=== PATIENT | female | born 1945 | race Caucasian/White ===

== ENCOUNTER 2017-05-26 15:38 | Emergency (ER) | payer MEDICARE ==
[~2017-05-26] VITALS: Ht 165.1 cm; Wt 62.6 kg
[~2017-05-26 15:38] MED LIST: ALEN70 PO; AMLO5 PO; B Complex1 EAC2; BUPR100 PO; CITA20 PO; CRANBERRY250 MG; GLUCOSAMIN-CHO1 EACH; LISI20 PO; PROBIOTIC1 EAC1; PSYL5.85P; VENL75ER; VITAMIN D-32000 UNIT; VITAMIN E100 UNI1
[2017-05-26 17:20] LABS: Calcium, Ionized (POC) 1.33 mmol/L (1.10-1.46); Chloride (POC) 102 mmol/L (98-108); Creatinine (POC) 0.8 mg/dL (0.6-1.0); Glucose (ISTAT POC) 96 mg/dL (70-99); Hemoglobin (POC) 13.3 g/dL (12.0-16.0); Potassium (POC) 3.6 mmol/L (3.5-5.5); Sodium (POC) 136 mmol/L (135-148); Total CO2 (POC) 24 mmol/L (21-32)
[2017-05-26 18:25] LABS: Calcium, Ionized (POC) 1.31 mmol/L (1.10-1.46); Chloride (POC) 102 mmol/L (98-108); Creatinine (POC) 0.9 mg/dL (0.6-1.0); Glucose (ISTAT POC) 93 mg/dL (70-99); Hemoglobin (POC) 13.6 g/dL (12.0-16.0); Potassium (POC) 3.6 mmol/L (3.5-5.5); Sodium (POC) 137 mmol/L (135-148); Total CO2 (POC) 24 mmol/L (21-32)
[2017-05-26] MEDS ORDERED: Percocet 5-3251 EACH PO (18:52)
== END 2017-05-26 19:15 | disposition home or self-care (01) ==
LOC: ER 15:38
PROVIDERS: Emergency Medicine
DX: T20.26XA Burn of second degree of forehead and cheek, initial encounter (principal); T20.20XA Burn of second degree of head, face, and neck, unspecified site, initial encounter; T31.0 Burns involving less than 10% of body surface; F17.200 Nicotine dependence, unspecified, uncomplicated; X12.XXXA Contact with other hot fluids, initial encounter
CPT/HCPCS: 16020; 80047; 85014; 96361; 96374; 96375; 99283; J2060; J2405; J3010; J7030

== ENCOUNTER 2018-08-04 14:46 | Day surgery (SDC) | payer MEDICARE ==
[~2018-08-04] VITALS: Ht 165.1 cm; Wt 60.8 kg
[~2018-08-04 14:46] MED LIST changes: +Percocet 5-3251 EACH PO
[2018-08-04] MEDS ORDERED: LO-DOSE ASPIRIN81 MG PO (15:26)
[2018-08-04] MEDS ORDERED: METHYLPHENIDATE10 M4 PO (15:27)
[2018-08-04] MEDS ORDERED: Sudogest30 MG PO (15:27)
== END 2018-08-04 16:07 | disposition home or self-care (01) ==
LOC: ORSCSDS 14:46
PROVIDERS: Anesthesiology
PROC: 3E0R33Z Introduction of Anti-inflammatory into Spinal Canal, Percutaneous Approach (ICD-10-PCS; principal; 2018-08-04 15:30)
DX: M51.16 Intervertebral disc disorders with radiculopathy, lumbar region (principal); I10 Essential (primary) hypertension; F17.210 Nicotine dependence, cigarettes, uncomplicated; Z79.899 Other long term (current) drug therapy
CPT/HCPCS: J1040

== ENCOUNTER 2018-08-26 10:19 | Day surgery (SDC) | payer MEDICARE ==
[~2018-08-26] VITALS: Ht 165.1 cm; Wt 62.2 kg
[~2018-08-26 10:19] MED LIST changes: +LO-DOSE ASPIRIN81 MG PO; +METHYLPHENIDATE10 M4 PO; +Sudogest30 MG PO
== END 2018-08-26 11:33 | disposition home or self-care (01) ==
LOC: ORSCSDS 10:19
PROVIDERS: Anesthesiology
PROC: 3E0R33Z Introduction of Anti-inflammatory into Spinal Canal, Percutaneous Approach (ICD-10-PCS; principal; 2018-08-26 11:30)
DX: M54.16 Radiculopathy, lumbar region (principal); F41.8 Other specified anxiety disorders; I10 Essential (primary) hypertension; F17.210 Nicotine dependence, cigarettes, uncomplicated; Z79.899 Other long term (current) drug therapy
CPT/HCPCS: J1040

== ENCOUNTER 2022-01-30 19:36 | Inpatient (IN) | payer MEDICARE ==
[~2022-01-30] VITALS: Ht 167.6 cm; Wt 61.2 kg
[2022-01-30 21:27] LABS: BASOPHILS ABSOLUTE AUTO 0.05 K/mm3 (0.00-0.23); BASOPHILS PERCENT AUTO 0 % (0-2); EOSINOPHILS ABSOLUTE AUTO 0.07 K/mm3 (0.00-0.68); EOSINOPHILS PERCENT AUTO 1 % (0-6); Hematocrit 35.3 % (33.0-51.0); Hemoglobin 12.1 g/dL (11.5-16.0); IMMATURE GRAN ABSOLUTE AUTO 0.07 K/mm3 (0.00-0.10); IMMATURE GRAN PERCENT AUTO 1 % (0-1); LYMPHOCYTES ABSOLUTE AUTO 1.39 K/mm3 (0.84-5.20); LYMPHOCYTES PERCENT AUTO 9 % (21-46); MONOCYTES ABSOLUTE AUTO 0.62 K/mm3 (0.16-1.47); MONOCYTES PERCENT AUTO 4 % (4-13); Mean Corpuscular HGB 31.2 pg (26.0-34.0); Mean Corpuscular HGB Conc 34.3 g/dL (31.5-36.5); Mean Corpuscular Volume 91 fL (80-100); Mean Platelet Volume 9.6 fL (9.1-12.4); NEUTROPHILS ABSOLUTE AUTO 12.58 K/mm3 (1.96-9.15); NEUTROPHILS PERCENT AUTO 85 % (41-73); Platelet Count 259 K/mm3 (150-400); RDW Standard Deviation 42.5 fL (35.1-46.3); Red Blood Cell Count 3.88 M/mm3 (3.80-5.20); White Blood Cell Count 14.78 K/mm3 (4.00-11.30)
[2022-01-30 21:51] LABS: Source, Urine Straight Cath
[2022-01-30 21:51] LABS: Albumin, Blood 3.6 g/dL (3.4-5.0); Albumin/Globulin Ratio 1.2 (0.8-1.8); Bilirubin, Total 0.3 mg/dL (0.1-1.0); Bun/Creatinine Ratio 17.4 (12.0-20.0); Calcium, Blood 9.5 mg/dL (8.5-10.1); Creatinine, Blood 0.92 mg/dL (0.40-1.00); Magnesium, Blood 2.1 mg/dL (1.6-2.4); Potassium, Blood 4.5 mmol/L (3.5-5.5); Thyroid Stimulating Hormone 2.56 uIU/mL (0.360-4.800); Total Protein, Blood 6.6 g/dL (6.4-8.2)
[2022-01-30 21:55] LABS: Bilirubin, Urine Neg (Neg); Blood, Urine Neg (Neg); Glucose Qualitative, Urine Neg (Neg); Ketones, Urine Neg (Neg); Leukocyte Esterase, Urine Neg (Neg); Nitrite, Urine Neg (Neg); Protein, Urine Neg (Neg); Specific Gravity, Urine 1.005 (1.003-1.022); Urobilinogen, Urine NORM (Normal)
[2022-01-30 21:57] LABS: Influenza A, PCR NEGATIVE (NEGATIVE); Influenza B, PCR NEGATIVE (NEGATIVE); Resp Syncytial Virus, PCR NEGATIVE (NEGATIVE); SARS-Cov-2 (COVID-19) PCR, MMC NEGATIVE (NEGATIVE)
--- NOTE | 2022-01-30 22:45 | NUR ---
ARRIVAL PT ARRIVED TO THE FLOOR IN NO DISTRESS, RLE OBVIOUSLY SHORTENED AND EXTERNALLY ROATED. SENSATION AND CIRCULATION IN TACT. VSS. PT SETTLED INTO BED, PLAN TO MEDICATE FOR PAIN AND MONITOR T/O THE NIGHT.
[2022-01-30 22:47] LABS: Appearance, Urine Clear (Clear); Color, Urine Yellow (P-Yellow)
--- NOTE | 2022-01-31 04:44 | NUR ---
VSS. PT PLACED ON 2L O2 AFTER LAST DOSE OF PAIN MEDICATION DUE TO O2 SATURATIONS BEING 88%. SENSATION AND CIRCULATION INTACT IN RLE. MEDICATED FOR PAIN WITH FENTYNAL WITH GOOD RESULTS. PT HAS BEEN NPO SINCE 0000 IN ANTICIPATION FOR SURGERY TODAY. BOYD IN PLACE DRAINING YELLOW URINE. PT HAS SLEPT WELL T/O THE NIGHT. THE PATIENT IS CURRENTLY SLEEPING, IN NO DISTRESS, CALL LIGHT IN REACH.
[2022-01-31 04:56] LABS: BASOPHILS ABSOLUTE AUTO 0.03 K/mm3 (0.00-0.23); BASOPHILS PERCENT AUTO 0 % (0-2); EOSINOPHILS ABSOLUTE AUTO 0.05 K/mm3 (0.00-0.68); EOSINOPHILS PERCENT AUTO 1 % (0-6); Hematocrit 31.1 % (33.0-51.0); Hemoglobin 10.6 g/dL (11.5-16.0); IMMATURE GRAN ABSOLUTE AUTO 0.04 K/mm3 (0.00-0.10); IMMATURE GRAN PERCENT AUTO 0 % (0-1); LYMPHOCYTES ABSOLUTE AUTO 1.26 K/mm3 (0.84-5.20); LYMPHOCYTES PERCENT AUTO 12 % (21-46); MONOCYTES PERCENT AUTO 6 % (4-13); Mean Corpuscular HGB 31.2 pg (26.0-34.0); Mean Corpuscular HGB Conc 34.1 g/dL (31.5-36.5); Mean Corpuscular Volume 92 fL (80-100); Mean Platelet Volume 9.4 fL (9.1-12.4); NEUTROPHILS ABSOLUTE AUTO 8.82 K/mm3 (1.96-9.15); NEUTROPHILS PERCENT AUTO 81 % (41-73); Platelet Count 215 K/mm3 (150-400); RDW Coefficient Variation 12.9 % (11.7-14.2); RDW Standard Deviation 42.8 fL (35.1-46.3)
[2022-01-31 05:18] LABS: Calcium, Blood 8.9 mg/dL (8.5-10.1); Creatinine, Blood 0.93 mg/dL (0.40-1.00); Potassium, Blood 4.3 mmol/L (3.5-5.5)
--- NOTE | 2022-01-31 07:11 | NUR ---
ASSUMED CARE: PT RESTING QUIETLY AT THIS TIME. NSR ON TELE IN THE 60S. 2L O2 VIA NC. NO ACUTE NEEDS OR CONCERNS AT THIS TIME.
--- NOTE | 2022-01-31 09:06 | NUR ---
DR PIRCE CAME TO SEE PT. EMPLOYEE RELATION MANAGER NOTIFIED DR TOBAR OF PT WHO STATED HE IS AWARE AND WILL COME SEE HER AFTER CURRENT PROCEDURE HE IS WORKING ON. EKG COMPLETED.
--- NOTE | 2022-01-31 17:48 | NUR ---
SHIFT SUMMARY: DR TOBAR CAME TO SEE PT AND STATED THAT SURGERY WILL OCCUR TOMORROW. NPO AFTER MN. MEDICATED X2 TODAY WITH FENTANYL. FAMILY CAME TO SEE PT DURING SHIFT. NO ACUTE NEEDS OR CONCERNS AT THIS TIME.
--- NOTE | 2022-01-31 18:28 | NUR ---
PT GOT OFF THE PHONE WITH SON AND WAS UPSET WITH STAFF STATING THAT SHE HAD BEEN HERE 2 DAYS WITHOUT SURGERY AND THAT HER SON WANTS HER TO GO TO [facility]. SHE STATED NO ONE HAD SPOKEN TO HER ABOUT WHAT WAS BROKEN AND WHAT THE PROCEDURE WAS. DISCUSSED THIS WITH HER FURTHER AND CLARIFIED THAT PT WAS ADMITTED LAST NIGHT AND WAS NPO UNTIL THIS MORNING. PT THEN STATED THAT SHE GOT CONFUSED DUE TO THE PAIN MEDICATION. EXPLAINED TO HER HER RIGHTS TO LEAVE AND CHANGE FACILITIES AND THAT MOST TRANSFERS OCCUR WHEN THE OTHER FACILITY CAN DO SOMETHING THAT WE CANNOT. EXPLAINED TO PT WHERE HER FX WAS AND PT BEGAN TO CALM AND THANKED STAFF FOR EXPLAINING FURTHER. SHE STATED THAT SHE IS CONCERNED ABOUT HER SON COMING IN AND TRYING TO FORCE HIS CHOICES ON HER. INSTRUCTED HER THAT SHE CAN BECOME CONFIDENTIAL, PT DECLINED THIS. INSTRUCTED PT TO THEN CALL STAFF IF SON ARRIVES AND MAKES HER UNCOMFORTABLE. PT AGREED. DENIED FURTHER NEEDS OR CONCERNS.
--- NOTE | 2022-02-01 04:03 | NUR ---
VSS. PT SLEPT WELL T/O THE NIGHT. MEDICATED FOR PAIN WTIH PRN'S. PT HAS BEEN NPO SINCE 0000 IN ANTICIPATION FOR SURGERY THIS AM. SENSATION AND CIRCULATION REMAINS INTACT IN RLE, PITTING EDEMA NOTED IN PTS RIGHT CALF. RLE ELEVATED ON PILLOW T/O THE NIGHT, UNABLE TO TOLLERATE SCD. ROMEO FOR PT TO HAVE SURGERY TODAY AND WORK WITH PT/OT BEFORE D/C. THE PATIENT IS CURRENTLY SLEEPING, IN NO DISTRESS, CALL LIGHT IN REACH.
[2022-02-01 06:48] LABS: BASOPHILS ABSOLUTE AUTO 0.02 K/mm3 (0.00-0.23); BASOPHILS PERCENT AUTO 0 % (0-2); EOSINOPHILS ABSOLUTE AUTO 0.05 K/mm3 (0.00-0.68); EOSINOPHILS PERCENT AUTO 0 % (0-6); Hematocrit 34.5 % (33.0-51.0); Hemoglobin 11.7 g/dL (11.5-16.0); IMMATURE GRAN ABSOLUTE AUTO 0.04 K/mm3 (0.00-0.10); IMMATURE GRAN PERCENT AUTO 0 % (0-1); LYMPHOCYTES ABSOLUTE AUTO 1.13 K/mm3 (0.84-5.20); LYMPHOCYTES PERCENT AUTO 10 % (21-46); MONOCYTES ABSOLUTE AUTO 0.78 K/mm3 (0.16-1.47); MONOCYTES PERCENT AUTO 7 % (4-13); Mean Corpuscular HGB 31.2 pg (26.0-34.0); Mean Corpuscular HGB Conc 33.9 g/dL (31.5-36.5); Mean Corpuscular Volume 92 fL (80-100); Mean Platelet Volume 9.7 fL (9.1-12.4); NEUTROPHILS PERCENT AUTO 82 % (41-73); Platelet Count 208 K/mm3 (150-400); RDW Coefficient Variation 13.1 % (11.7-14.2); RDW Standard Deviation 43.6 fL (35.1-46.3); Red Blood Cell Count 3.75 M/mm3 (3.80-5.20); White Blood Cell Count 11.12 K/mm3 (4.00-11.30)
[2022-02-01 07:22] LABS: Bun/Creatinine Ratio 8.7 (12.0-20.0); Calcium, Blood 9.1 mg/dL (8.5-10.1); Creatinine, Blood 0.8 mg/dL (0.40-1.00); Potassium, Blood 4.1 mmol/L (3.5-5.5)
--- NOTE | 2022-02-01 11:46 | NUR ---
PATIENT JUST LEFT FOR THE OR.
--- NOTE | 2022-02-01 12:38 | NUR ---
inTO Day Surgery VIA BED, PT HERE ON RA WAS ON 02 IN ROOM BUT NOT AT HOME. SAO2=92-93%, O2 ON AT 2L/MIN VIA NC. H+P REVIEWED, T=100.2 PT STATES SHE DOES FEEL LIKE SHE HAS A FEVER. STATES SHE IS "UNABLE TO SAY IF SHE FEELS LIKE SHE'S BEEN FEELING SICK OR NOT B/C SHE GETS FEVERS OFF AND ON AND FREQUENTLY DOESN'T FEEL WELL." PT ALSO STATES SHE HAS "FALLEN SEVERAL TIMES RECENTLY AND HAD A HEAD SCAN ON ONE VISIT TO THE ER" PT HAS BOYD CATH INPLACE DRAINING ALIN COLORED URINE
--- NOTE | 2022-02-01 12:49 | NUR ---
02/01/22 1249 Cristel Serrano PATIENT ARRIVED TO OR WITH BOYD CATHETER IN PLACE DRAINING YELLOW URINE.
--- NOTE | 2022-02-01 14:59 | NUR ---
SHIFT SUMMARY/NOTE: PATIENT CAME BACK FROM PACU TODAY AT 1330. POD 0 RIGHT HIP GAMMA NAILING PATIENT IS A&OX4. VS ARE WNL AND IS ON 2L NC WITH >90% OXYGEN SATS. PATIENT DENIES PAIN AT THIS TIME. SHE IS ABLE TO MOVE FINGERS AND TOES. DENIES NUMBNESS AND TINGLING. RIGHT HIP HAS AN AQUACEL THAT IS C/D/I. SHE IS TOLERATING SMALL SIPS OF WATER. BOYD IS INTACT AND PATENT WITH YELLOW URINE IN BOYD BAG. PATIENT IS SNORING IN BED WITH CALL LIGHT IN REACH.
--- NOTE | 2022-02-02 05:31 | NUR ---
SHIFT SUMMARY PT A&OX4, PLEASANT AND COOPERATIVE. NO ACUTE CHANGES DURING SHIFT, VSS. MEDICATED TWICE FOR PAIN DURING SHIFT. REMAINED ON 2L NC WITH STATS >90%. AQUACEL DRESSING ON R HIP CHANGED. BOYD IN PLACE AND DRAINING TO GRAVITY. TOLERATING PO INTAKE. CALLS APPROPRIATELY, CALL LIGHT WITHIN REACH.
[2022-02-02 06:05] LABS: BASOPHILS ABSOLUTE AUTO 0.01 K/mm3 (0.00-0.23); BASOPHILS PERCENT AUTO 0 % (0-2); EOSINOPHILS PERCENT AUTO 0 % (0-6); Hematocrit 28.7 % (33.0-51.0); Hemoglobin 9.7 g/dL (11.5-16.0); IMMATURE GRAN ABSOLUTE AUTO 0.11 K/mm3 (0.00-0.10); IMMATURE GRAN PERCENT AUTO 1 % (0-1); LYMPHOCYTES ABSOLUTE AUTO 0.84 K/mm3 (0.84-5.20); LYMPHOCYTES PERCENT AUTO 7 % (21-46); MONOCYTES ABSOLUTE AUTO 0.83 K/mm3 (0.16-1.47); MONOCYTES PERCENT AUTO 7 % (4-13); Mean Corpuscular HGB 31.2 pg (26.0-34.0); Mean Corpuscular HGB Conc 33.8 g/dL (31.5-36.5); Mean Corpuscular Volume 92 fL (80-100); Mean Platelet Volume 9.8 fL (9.1-12.4); NEUTROPHILS ABSOLUTE AUTO 11.01 K/mm3 (1.96-9.15); NEUTROPHILS PERCENT AUTO 86 % (41-73); Platelet Count 195 K/mm3 (150-400); RDW Coefficient Variation 12.8 % (11.7-14.2); RDW Standard Deviation 43.5 fL (35.1-46.3); Red Blood Cell Count 3.11 M/mm3 (3.80-5.20)
[2022-02-02 06:18] LABS: Bun/Creatinine Ratio 17.6 (12.0-20.0); Calcium, Blood 9.3 mg/dL (8.5-10.1); Creatinine, Blood 0.85 mg/dL (0.40-1.00); Potassium, Blood 4.6 mmol/L (3.5-5.5)
--- NOTE | 2022-02-02 18:43 | NUR ---
SHIFT SUMMARY POD1 R HIP NAIL, AQUACEL DRY/INTACT. PT A&OX4, VSS/RA, DOUGIE PO, VOIDING WELL, PAIN MANAGED WITH 5 MG NORCO PRN, AMB SBA/MIN ASSIST TO BSC/CHAIR. WILL REPORT TO ONCOMING NOC RN.
--- NOTE | 2022-02-03 05:34 | NUR ---
SHIFT SUMMARY PT A&OX4, PLEASANT AND COOPERATIVE. NO ACUTE CHANGES, VSS. VOIDING USING BSC, 1-ASSIST WITH FFW/GB. MEDICATED FOR PAIN ONCE THIS SHIFT. TOLERATING PO INTAKE. LIGHT SHADOWING ON AQUACEL, OTHERWISE C/D/I. CALLS APPROPRIATELY, CALL LIGHT WITHIN REACH.
[2022-02-03 06:41] LABS: BASOPHILS ABSOLUTE AUTO 0.01 K/mm3 (0.00-0.23); BASOPHILS PERCENT AUTO 0 % (0-2); EOSINOPHILS ABSOLUTE AUTO 0.15 K/mm3 (0.00-0.68); EOSINOPHILS PERCENT AUTO 1 % (0-6); Hematocrit 26.4 % (33.0-51.0); IMMATURE GRAN ABSOLUTE AUTO 0.07 K/mm3 (0.00-0.10); IMMATURE GRAN PERCENT AUTO 1 % (0-1); LYMPHOCYTES ABSOLUTE AUTO 1.56 K/mm3 (0.84-5.20); LYMPHOCYTES PERCENT AUTO 15 % (21-46); MONOCYTES ABSOLUTE AUTO 0.84 K/mm3 (0.16-1.47); MONOCYTES PERCENT AUTO 8 % (4-13); Mean Corpuscular HGB 31.4 pg (26.0-34.0); Mean Corpuscular HGB Conc 34.1 g/dL (31.5-36.5); Mean Corpuscular Volume 92 fL (80-100); Mean Platelet Volume 10.5 fL (9.1-12.4); NEUTROPHILS ABSOLUTE AUTO 8.15 K/mm3 (1.96-9.15); NEUTROPHILS PERCENT AUTO 76 % (41-73); Platelet Count 216 K/mm3 (150-400); RDW Coefficient Variation 13.1 % (11.7-14.2); RDW Standard Deviation 43.8 fL (35.1-46.3); Red Blood Cell Count 2.87 M/mm3 (3.80-5.20); White Blood Cell Count 10.78 K/mm3 (4.00-11.30)
[2022-02-03 06:49] LABS: Calcium, Blood 9.4 mg/dL (8.5-10.1); Creatinine, Blood 0.77 mg/dL (0.40-1.00)
--- NOTE | 2022-02-03 16:51 | NUR ---
SHIFT SUMMARY POD2 R HIP NAIL, AQUACEL CHANGED TODAY. PT A&OX4, VSS/RA, DOUGIE PO, VOIDING WELL, PAIN MANAGED WITH 5-10 MG NORCO PRN, AMB SBA/MIN ASSIST TO BSC/CHAIR. PT DOING PHYSICAL THERAPY EXERCISES AND DOING WELL TRANSFERRING, AND AMB INDEPENDENTLY. WILL REPORT TO ONCOMING NOC RN.
--- NOTE | 2022-02-04 04:13 | NUR ---
SHIFT SUMMARY NO ACUTE CHANGES. PT RESTED WELL T/O SHIFT. 2 NORCO FOR PAIN PRN. DRESSING TO R HIP REMAINS CDI. USES CALL LIGHT APPROPRIATELY.
--- NOTE | 2022-02-05 05:19 | NUR ---
SHIFT SUMMARY PT A&OX4, PLEASANT AND COOPERATIVE WITH CARE. NO ACUTE CHANGES, VSS. MEDICATING FOR PAIN PER EMAR. 1-ASSIST WITH FWW/GB TO BSC, VOIDING WELL. TOLERATING PO INTAKE. DRESSING TO R HIP HAD LIGHT SHADOWING. CALLS APPROPRIATELY, CALL LIGHT WITHIN REACH.
[2022-02-05] MEDS ORDERED: DOCUZEN 8.6-501 EACH PO (11:21)
[2022-02-05] MEDS ORDERED: HYDR1TAB94 PO (11:21)
[2022-02-05] MEDS ORDERED: Nicoderm Cq1 EAC1 TD (11:22)
[2022-02-05] MEDS ORDERED: MIRALAX17 GM PO (11:23)
== END 2022-02-05 11:33 | disposition home health service (06) | DRG 481 ==
LOC: ER 19:36 → SURS 22:38
PROVIDERS: Internal Medicine; Orthopaedic Surgery; Student in an Organized Health Care Education/Training Program; ADMIT Family Medicine
PROC: 0QS634Z Reposition Right Upper Femur with Internal Fixation Device, Percutaneous Approach (ICD-10-PCS; principal; 2022-02-01 15:00)
DX: S72.141A Displaced intertrochanteric fracture of right femur, initial encounter for closed fracture (principal); E87.1 Hypo-osmolality and hyponatremia; I10 Essential (primary) hypertension; F32.A Depression, unspecified; E78.5 Hyperlipidemia, unspecified; M81.0 Age-related osteoporosis without current pathological fracture; K58.9 Irritable bowel syndrome, unspecified; M19.90 Unspecified osteoarthritis, unspecified site; W18.30XA Fall on same level, unspecified, initial encounter; Z20.822 Contact with and (suspected) exposure to COVID-19; F17.210 Nicotine dependence, cigarettes, uncomplicated; F10.10 Alcohol abuse, uncomplicated; D72.829 Elevated white blood cell count, unspecified; Z88.2 Allergy status to sulfonamides; Z88.8 Allergy status to other drugs, medicaments and biological substances; Z79.899 Other long term (current) drug therapy; Z79.811 Long term (current) use of aromatase inhibitors; Z79.82 Long term (current) use of aspirin; Z98.890 Other specified postprocedural states; Z90.710 Acquired absence of both cervix and uterus; Z71.6 Tobacco abuse counseling
CPT/HCPCS: 0241U; 36415; 51702; 70450; 73502; 80048; 80053; 81003; 83735; 83880; 84443; 84484; 85025; 93005; 93010; 93971; 94760; 96374; 97110; 97116; 97161; 97166; 97530; 97535; 99285-25; A9270; C1713; J0690; J1100; J1170; J1650; J1885; J2250; J2405; J2704; J3010; J7030; J7120

== ENCOUNTER → 2022-04-17 | Outpatient (CLI) | payer MEDICARE ==
[~2022-04-17] MED LIST changes: +DOCUZEN 8.6-501 EACH PO; +HYDR1TAB94 PO; +MIRALAX17 GM PO; +Nicoderm Cq1 EAC1 TD
[2022-04-18 13:56] LABS: Calcium, Urine 8.1 mg/dL (< 17.5)
== END | disposition home or self-care (01) ==
LOC: LAB 08:45 → LAB SHORT 08:45
PROVIDERS: Nurse Practitioner Family
DX: E21.3 Hyperparathyroidism, unspecified (principal)
CPT/HCPCS: 81050; 82340

== ENCOUNTER 2023-02-04 09:06 | Day surgery (SDC) | payer MEDICARE ==
[~2023-02-04] VITALS: Ht 160 cm; Wt 56.6 kg
[2023-02-04] VITALS (29 sets, daily range): BP systolic 95–180; BP diastolic 58–93
[~2023-02-04 09:06] MED LIST changes: +CIDAFLEX TABLE1 EAC1 PO; +GEMTESA75 MG PO; +PRAV20 PO; +VENLAFAXINE HCL50 MG PO
--- NOTE | 2023-02-04 10:09 | NUR ---
Ambulatory in Day Surgery WITH CANE. History, Chart, Medications and Allergies reviewed before start of procedure. Lungs clear T/O to Auscultation. Patient confirms NPO status and agrees with scheduled surgery. Pre-Op teaching done. Pt verbalizes understanding. Patient States Post-Procedure ride home has been arranged.
--- NOTE | 2023-02-04 10:51 | NUR ---
02/04/23 1051 Sut Parsons HISTORY, CHART, MEDICATIONS AND ALLERGIES REVIEWED BEFORE START OF PROCEDURE. PATIENT CONFIRMS NPO STATUS AND AGREES WITH SCHEDULED PROCEDURE. 3-LEAD EKG REVIEWED WITH PHYSICIAN PRIOR TO START OF PROCEDURE. MONITOR INTACT WITH CONTINUOUS PULSE OXIMETRY,CAPNOGRAPHY, 3-LEAD EKG, INTERMITTENT BP. SUPPLEMENTAL O2 TO BE TITRATED THROUGHOUT PROCEDURE TO MAINTAIN O2 SATURATION ABOVE 90%. PATIENT DETERMINED TO BE ASA APPROPRIATE FOR PROPOFOL SEDATION PRIOR TO START OF PROCEDURE BY DR. PABON.
--- NOTE | 2023-02-04 12:32 | NUR ---
Discharge instructions reviewed with patient. Patient verbalizes understanding. Copy given to patient to take home. Patient States Post-Procedure ride home has been arranged. PT TOLERATED COFFEE AND CREAM IN DS. Discharged via wheelchair to private car for ride home.
== END 2023-02-04 12:34 | disposition home or self-care (01) ==
LOC: ORSCMMR 09:06 → ORD 10:00 → ORSCMMR 12:34
DX: K62.5 Hemorrhage of anus and rectum (principal); K25.9 Gastric ulcer, unspecified as acute or chronic, without hemorrhage or perforation; K22.70 Barrett's esophagus without dysplasia; K52.831 Collagenous colitis; K63.89 Other specified diseases of intestine; R10.13 Epigastric pain; K29.71 Gastritis, unspecified, with bleeding; K57.30 Diverticulosis of large intestine without perforation or abscess without bleeding; I10 Essential (primary) hypertension; E78.00 Pure hypercholesterolemia, unspecified; F32.A Depression, unspecified; Z79.899 Other long term (current) drug therapy; F17.210 Nicotine dependence, cigarettes, uncomplicated
CPT/HCPCS: 88305; 88313; 88342; A9270; J2704; J7120

== ENCOUNTER → 2023-04-30 | Outpatient (CLI) | payer MEDICARE ==
[2023-05-02 07:46] LABS: Adenovirus F 40/41 Not Detected (NOT DETECT); Astrovirus Not Detected (NOT DETECT); Campylobacter Sp Not Detected (NOT DETECT); Cryptosporidium Not Detected (NOT DETECT); Cyclospora Cayetanensis Not Detected (NOT DETECT); E. Coli O157 Not Detected (NOT DETECT); Entamoeba Histolytica Not Detected (NOT DETECT); Enteroaggregative E. coli-EAEC Not Detected (NOT DETECT); Enteropathogenic E. coli-EPEC Not Detected (NOT DETECT); Enterotoxigenic E. coli-ETEC Not Detected (NOT DETECT); Giardia Lamblia Not Detected (NOT DETECT); Norovirus GI/GII Not Detected (NOT DETECT); Plesiomonas Shigelloides Not Detected (NOT DETECT); Rotavirus A Not Detected (NOT DETECT); Salmonella Sp Not Detected (NOT DETECT); Sapovirus Not Detected (NOT DETECT); Shiga Toxin-prod E. coli-STEC Not Detected (NOT DETECT); Shigella/Enteroin E. coli-EIEC Not Detected (NOT DETECT); Vibrio Cholerae Not Detected (NOT DETECT); Vibrio Sp Not Detected (NOT DETECT); Yersinia Enterocolitica Not Detected (NOT DETECT)
== END | disposition home or self-care (01) ==
LOC: LAB SHORT 17:40 → LAB 17:40
PROVIDERS: Internal Medicine Gastroenterology
DX: D50.0 Iron deficiency anemia secondary to blood loss (chronic) (principal); E87.8 Other disorders of electrolyte and fluid balance, not elsewhere classified; E03.9 Hypothyroidism, unspecified; R19.7 Diarrhea, unspecified
CPT/HCPCS: 87507

== ENCOUNTER 2023-06-30 11:57 | Inpatient (IN) | payer MEDICARE ==
[~2023-06-30] VITALS: Ht 160 cm; Wt 63.2 kg
[2023-06-30] MEDS ORDERED: PANTOPRAZOLE SO40 M2 PO (12:07)
[2023-06-30] MEDS ORDERED: VENL25 PO (12:07)
[2023-06-30] MEDS ORDERED: MESALAMINE 1.2 GM ×2 (12:08)
[2023-06-30] MEDS ORDERED: PRAV20 PO (12:09)
[2023-06-30] MEDS ORDERED: NS 1,000 ML IV SCH ×4 (12:30→18:50)
[2023-06-30 12:33] LABS: BASOPHILS ABSOLUTE AUTO 0.03 K/mm3 (0.00-0.23); BASOPHILS PERCENT AUTO 0 % (0-2); EOSINOPHILS ABSOLUTE AUTO 0.03 K/mm3 (0.00-0.68); EOSINOPHILS PERCENT AUTO 0 % (0-6); Hematocrit 36.8 % (33.0-51.0); Hemoglobin 12.8 g/dL (11.5-16.0); IMMATURE GRAN ABSOLUTE AUTO 0.03 K/mm3 (0.00-0.10); IMMATURE GRAN PERCENT AUTO 0 % (0-1); LYMPHOCYTES ABSOLUTE AUTO 1.14 K/mm3 (0.84-5.20); LYMPHOCYTES PERCENT AUTO 14 % (21-46); MONOCYTES ABSOLUTE AUTO 0.77 K/mm3 (0.16-1.47); MONOCYTES PERCENT AUTO 10 % (4-13); Mean Corpuscular HGB 28.7 pg (26.0-34.0); Mean Corpuscular HGB Conc 34.8 g/dL (31.5-36.5); Mean Corpuscular Volume 83 fL (80-100); Mean Platelet Volume 9.7 fL (9.1-12.4); NEUTROPHILS ABSOLUTE AUTO 6.09 K/mm3 (1.96-9.15); NEUTROPHILS PERCENT AUTO 75 % (41-73); Platelet Count 298 K/mm3 (150-400); RDW Coefficient Variation 13.4 % (11.7-14.2); RDW Standard Deviation 40.6 fL (35.1-46.3); Red Blood Cell Count 4.46 M/mm3 (3.80-5.20); White Blood Cell Count 8.09 K/mm3 (4.00-11.30)
[2023-06-30 12:52] LABS: Albumin, Blood 3.4 g/dL (3.4-5.0); Albumin/Globulin Ratio 0.8 (0.8-1.8); Bilirubin, Total 0.4 mg/dL (0.1-1.0); Bun/Creatinine Ratio 12.2 (12.0-20.0); Calcium, Blood 8.7 mg/dL (8.5-10.1); Creatinine, Blood 7.24 mg/dL (0.40-1.00); Globulin, Blood 4.2 g/dL (2.2-4.0); Potassium, Blood 2.5 mmol/L (3.5-5.5); Total Protein, Blood 7.6 g/dL (6.4-8.2)
[2023-06-30] MEDS ORDERED: Potassium Chloride 20 MEQ TabCR PO ONE ×3 (13:20→19:00)
[2023-06-30] MEDS ORDERED: Potassium Chl 20MEQ/Water100ML 100 ML IV SCH ×2 (13:25→19:45)
[2023-06-30] MEDS ORDERED: Ondansetron 4 MG TAB PO PRN (15:20)
[2023-06-30 17:01] LABS: Adenovirus F 40/41 Not Detected (NOT DETECT); Astrovirus Not Detected (NOT DETECT); Campylobacter Sp Not Detected (NOT DETECT); Cryptosporidium Not Detected (NOT DETECT); Cyclospora Cayetanensis Not Detected (NOT DETECT); E. Coli O157 Not Detected (NOT DETECT); Entamoeba Histolytica Not Detected (NOT DETECT); Enteroaggregative E. coli-EAEC Not Detected (NOT DETECT); Enteropathogenic E. coli-EPEC Not Detected (NOT DETECT); Enterotoxigenic E. coli-ETEC Not Detected (NOT DETECT); Giardia Lamblia Not Detected (NOT DETECT); Norovirus GI/GII Not Detected (NOT DETECT); Plesiomonas Shigelloides Not Detected (NOT DETECT); Rotavirus A Not Detected (NOT DETECT); Salmonella Sp Not Detected (NOT DETECT); Sapovirus Not Detected (NOT DETECT); Shiga Toxin-prod E. coli-STEC Not Detected (NOT DETECT); Shigella/Enteroin E. coli-EIEC Not Detected (NOT DETECT); Vibrio Cholerae Not Detected (NOT DETECT); Vibrio Sp Not Detected (NOT DETECT); Yersinia Enterocolitica Not Detected (NOT DETECT)
[2023-06-30 18:26] LABS: Albumin, Blood 2.7 g/dL (3.4-5.0); Albumin/Globulin Ratio 0.8 (0.8-1.8); Bilirubin, Total 0.3 mg/dL (0.1-1.0); Bun/Creatinine Ratio 13.6 (12.0-20.0); Calcium, Blood 7.4 mg/dL (8.5-10.1); Creatinine, Blood 6.09 mg/dL (0.40-1.00); Globulin, Blood 3.3 g/dL (2.2-4.0); Phosphorus, Blood 5.2 mg/dL (2.5-4.9); Potassium, Blood 2.9 mmol/L (3.5-5.5)
[2023-06-30] MEDS ORDERED: Sodium Bicarb 8.4% Inj 150 MEQ in Dextrose 5% 1,000 ML IV SCH ×3 (18:55→19:35)
[2023-06-30 19:15] VITALS: BP 107/60
[2023-06-30 20:00] VITALS: BP 93/62
[2023-06-30 20:04] LABS: Base Excess Venous -19.2 mmol/L; Bicarbonate Venous 11.4 mmol/L (24.0-30.0); PCO2 Venous 24.4 mmHg (38-42); pH Blood Venous 7.18 (7.34-7.37)
[2023-06-30 20:46] LABS: Albumin, Blood 2.8 g/dL (3.4-5.0); Anion Gap 21 mmol/L (3-11); Blood Urea Nitrogen 83 mg/dL (8-24); Bun/Creatinine Ratio 13.7 (12.0-20.0); CO2, Blood 9 mmol/L (21-32); Calcium, Blood 7.6 mg/dL (8.5-10.1); Chloride, Blood 105 mmol/L (98-108); Creatinine, Blood 6.07 mg/dL (0.40-1.00); Glomerular Filtration Rate 7 (60-); Glucose, Blood 78 mg/dL (70-99); Phosphorus, Blood 4.9 mg/dL (2.5-4.9); Sodium, Blood 132 mmol/L (136-145)
[2023-06-30 21:00] VITALS: BP 95/55
[2023-06-30] MEDS ORDERED: Pravastatin Sodium 20 MG Tab PO SCH (21:00)
[2023-06-30] MEDS ORDERED: MULVITA PO (21:47)
[2023-06-30] MEDS ORDERED: GEMTESA75 MG PO (21:47)
[2023-06-30 22:00] VITALS: BP 105/56
[2023-06-30 23:00] VITALS: BP 94/54
[2023-07-01] VITALS (16 sets, daily range): BP systolic 84–106; BP diastolic 51–62
[2023-07-01] MEDS ORDERED: NS 250 ML IV SCH (00:45)
[2023-07-01 02:59] LABS: BASOPHILS ABSOLUTE AUTO 0.01 K/mm3 (0.00-0.23); BASOPHILS PERCENT AUTO 0 % (0-2); EOSINOPHILS ABSOLUTE AUTO 0.09 K/mm3 (0.00-0.68); EOSINOPHILS PERCENT AUTO 2 % (0-6); Hematocrit 27.6 % (33.0-51.0); Hemoglobin 9.7 g/dL (11.5-16.0); IMMATURE GRAN ABSOLUTE AUTO 0.02 K/mm3 (0.00-0.10); IMMATURE GRAN PERCENT AUTO 0 % (0-1); LYMPHOCYTES ABSOLUTE AUTO 0.74 K/mm3 (0.84-5.20); LYMPHOCYTES PERCENT AUTO 15 % (21-46); MONOCYTES ABSOLUTE AUTO 0.52 K/mm3 (0.16-1.47); MONOCYTES PERCENT AUTO 10 % (4-13); Mean Corpuscular HGB 28.9 pg (26.0-34.0); Mean Corpuscular HGB Conc 35.1 g/dL (31.5-36.5); Mean Corpuscular Volume 82 fL (80-100); Mean Platelet Volume 9.6 fL (9.1-12.4); NEUTROPHILS ABSOLUTE AUTO 3.73 K/mm3 (1.96-9.15); NEUTROPHILS PERCENT AUTO 73 % (41-73); Platelet Count 217 K/mm3 (150-400); RDW Coefficient Variation 13.5 % (11.7-14.2); RDW Standard Deviation 40.8 fL (35.1-46.3); Red Blood Cell Count 3.36 M/mm3 (3.80-5.20); White Blood Cell Count 5.11 K/mm3 (4.00-11.30)
[2023-07-01 03:23] LABS: Albumin, Blood 2.5 g/dL (3.4-5.0); Albumin/Globulin Ratio 0.8 (0.8-1.8); Bilirubin, Total 0.4 mg/dL (0.1-1.0); Calcium, Blood 7.7 mg/dL (8.5-10.1); Creatinine, Blood 5.28 mg/dL (0.40-1.00); Globulin, Blood 3.1 g/dL (2.2-4.0); Potassium, Blood 2.7 mmol/L (3.5-5.5); Total Protein, Blood 5.6 g/dL (6.4-8.2)
[2023-07-01 03:37] LABS: Magnesium, Blood 1.1 mg/dL (1.6-2.4); Phosphorus, Blood 2.6 mg/dL (2.5-4.9)
[2023-07-01] MEDS ORDERED: Potassium Chloride 40 MEQ in NS 250 ML IV ONE (04:05)
[2023-07-01] MEDS ORDERED: Magnesium Sulf 2 GM/Water 50ML 50 ML IV ONE (04:05)
--- NOTE | 2023-07-01 06:23 | NUR ---
SHIFT SUMMERY PT IS ALERT AND ORIENTED X4,FORGETFUL AT TIMES. SHE HAS BEEN SR ON THE INTERNET MARKETING ASSISTANT, BP SOFT AT TIMES. 250ML BOLUS GIVEN X1 AND MAP IMPROVED TO >65. ELECTROLYTES ARE BEING REPLACED PER MD ORDERS. PT HAS HAD SEVERAL LOOSE STOOLS W/SOME INCONTINENT EPISODES. AFEBRILE. OXYGEN SAT >90% ON ROOM AIR. PT HAS HAD NO ACUTE CHANGES OVERNIGHT.
[2023-07-01 08:41] LABS: Bun/Creatinine Ratio 14.7 (12.0-20.0); Calcium, Blood 7.8 mg/dL (8.5-10.1); Creatinine, Blood 4.76 mg/dL (0.40-1.00); Potassium, Blood 2.6 mmol/L (3.5-5.5)
--- NOTE | 2023-07-01 08:50 | NUR ---
ASSUMED CARE / DR SPARKS: REPORT RECEIVED FROM MEDHAT Han RN. ASSUMED CARE OF THIS PT AT APPROX 0700. ON ASSESSMENT, THE PT IS A&O, PLEASANT & COOPERATIVE. SHE STS BEING CHRONICALLY COLD & REQUESTS MORE WARM BLANKETS, AFEBRILE. RUBIO, FOLLOWS DIRECTIONS WELL. OCCASIONALLY FORGETFUL, HOONAH. LS CLEAR T/O, PT ON RA W/ O2 SATS > 92%. MONITOR SHOWS SR W/ HR 70s, BP STABLE W/ MAP > 65. PT CONTINUES TO HAVE CHRONIC DIARRHEA & STS BEING OKAY WITH RECTAL TUBE PLACEMENT TO PREVENT SKIN IRRITATION/ BREAKDOWN. TOLERATING SMALL AMNTS PO INTAKE WELL. VOIDS URINE WHEN UP TO HAVE BMs, UNABLE TO COLLECT ORDERED URINE SPECIMEN IT IS MIXED WITH LIQUID STL. SKIN OVERALL INTACT, Q2H REPOSITIONING TO MAINTAIN SKIN INTEGRITY. DR SPARKS HAS ROUNDED ON THE PT AT APPROX 0750 THIS AM. SHE STS THE PT's MAP GOAL IS > 65, OKAY TO BE PCU STATUS IF THE PT IS MAINTAINING THIS. SHE AGREES THAT PLACING A RECTAL TUBE WOULD BENEFIT THIS PT. VERIFIED THAT SERIAL LABS ARE ORDERED & KCL IS INFUSING PER EMAR. NO OTHER CHANGES AT THIS TIME. WILL CONTINUE TO MONITOR & UPDATE NEEDED.
[2023-07-01] MEDS ORDERED: Venlafaxine HCl 37.5 MG CapCR PO SCH (09:00)
[2023-07-01] MEDS ORDERED: Heparin Sodium,Porcine 5,000 UNIT/0.5 ML SDV SC SCH (09:00)
[2023-07-01] MEDS ORDERED: Pantoprazole Sodium 40 MG Tab PO SCH (09:00)
[2023-07-01] MEDS ORDERED: POTASSIUM CHLORIDE IV SCH ×2 (10:05→18:15)
[2023-07-01] MEDS ORDERED: D5W LR IV SCH ×2 (10:05→18:15)
[2023-07-01] MEDS ORDERED: Thiamine HCl 100 MG Tab PO SCH (12:20)
[2023-07-01] MEDS ORDERED: Multivitamins-Minerals Liquid 15 ML Oral Syringe PO SCH (12:20)
[2023-07-01] MEDS ORDERED: Loperamide HCl 2 MG Cap PO PRN (12:40)
[2023-07-01] MEDS ORDERED: Cholestyramine 4 GM PKT PO SCH (13:00)
[2023-07-01 14:14] LABS: BASOPHILS PERCENT AUTO 0 % (0-2); EOSINOPHILS ABSOLUTE AUTO 0.06 K/mm3 (0.00-0.68); EOSINOPHILS PERCENT AUTO 1 % (0-6); Hematocrit 26.7 % (33.0-51.0); Hemoglobin 9.7 g/dL (11.5-16.0); IMMATURE GRAN ABSOLUTE AUTO 0.02 K/mm3 (0.00-0.10); IMMATURE GRAN PERCENT AUTO 0 % (0-1); LYMPHOCYTES ABSOLUTE AUTO 0.87 K/mm3 (0.84-5.20); LYMPHOCYTES PERCENT AUTO 17 % (21-46); MONOCYTES ABSOLUTE AUTO 0.44 K/mm3 (0.16-1.47); MONOCYTES PERCENT AUTO 8 % (4-13); Mean Corpuscular HGB 28.7 pg (26.0-34.0); Mean Corpuscular HGB Conc 36.3 g/dL (31.5-36.5); Mean Corpuscular Volume 79 fL (80-100); Mean Platelet Volume 9.5 fL (9.1-12.4); NEUTROPHILS ABSOLUTE AUTO 3.83 K/mm3 (1.96-9.15); NEUTROPHILS PERCENT AUTO 73 % (41-73); Platelet Count 245 K/mm3 (150-400); RDW Coefficient Variation 13.1 % (11.7-14.2); RDW Standard Deviation 37.7 fL (35.1-46.3); Red Blood Cell Count 3.38 M/mm3 (3.80-5.20); White Blood Cell Count 5.22 K/mm3 (4.00-11.30)
--- NOTE | 2023-07-01 14:45 | NUR ---
DR Self: PROVIDER AT BEDSIDE THIS AFTERNOON TO EVAL PT. HE HAS BEEN MONITORING ELECTROLYTE VALUES & FLUID BALANCE OVERALL. RENAL FUNCTION LABS TRENDING IN APPROPRIATE DIRECTION. NOTIFIED THAT PT IS NOW PCU STATUS. NO OTHER CHANGES AT THIS TIME.
[2023-07-01 15:02] LABS: Eosinophils-Raw #,Urine 3
[2023-07-01 15:46] LABS: Bun/Creatinine Ratio 15.6 (12.0-20.0); Calcium, Blood 7.9 mg/dL (8.5-10.1); Creatinine, Blood 3.77 mg/dL (0.40-1.00); Potassium, Blood 2.6 mmol/L (3.5-5.5)
[2023-07-01] MEDS ORDERED: Potassium Chloride 20 MEQ TabCR PO SCH (17:00)
--- NOTE | 2023-07-01 17:01 | NUR ---
SHIFT SUMMARY / REPORT TO PCU: NO ACUTE CHANGES SINCE PRIOR UPDATES. PT REMAINS A&O TO ALL, PLEASANT & COOPERATIVE W/ CARE. LS CLEAR T/O, PT ON RA W/ O2 SATS > 92%. MONITOR SHOWS SR W/ HR 70-80s, SBP 90-100s W/ MAP > 65. RECTAL TUBE PATENT/ DRAINING BROWN LIQUID STLS WELL. PT TOLERATING SMALL AMNTS PO INTAKE W/ NO NAUSEA REPORTED. VOIDING YELLOW URINE W/O DIFFICULTY, ONE STAFF ASSIST W/ FWW TO USE BSC. SKIN OVERALL INTACT, Q2H REPOSITIONING TO MAINTAIN SKIN INTEGRITY. REPORT HAS BEEN GIVEN TO TANNER Gibson RN IN PCU. PLAN IS FOR PT TO TRANSFER TO PCU-14 JUST BEFORE SHIFT CHANGE TO ACCOMODATE TIME NEEDED FOR OTHER PT MOVEMENT IN PCU. THE PT & HER AT BEDSIDE ARE AWARE OF TIMING FOR TRANSFER. WILL CONTINUE TO MONITOR & UPDATE NEEDED UNTIL TIME OF TRANSFER.
--- NOTE | 2023-07-01 18:30 | NUR ---
TRANSFER TO PCU: THE PT HAS BEEN TRANSFERRED TO PCU-14 AT APPROX 1830. USED BSC W/ MIN ASSIST, STS "LOSING BALANCE" & IS NOTED TO SIDE STEP W/ THIS RN ASSISTING PT TO REGAIN BALANCE DURING TRANSFER FROM BSC BACK TO BED. RN TO ASSUME CARE AWARE OF PT's ARRIVAL & CERTIFICATION OFFICER TO ASSUME CARE AT BEDSIDE WHILE THIS RN HAS SETTLED PT INTO NEW ROOM.
--- NOTE | 2023-07-01 20:34 | NUR ---
ASSUMPTION OF CARE AFTER RECEIVING REPORT FROM TANNER CHEUNG, THIS RN ASSUMED CARE AT APPROX 1915. DURING INITIAL ENCOUNTER, PATIENT SLEEPING. EASILY AROUSABLE TO VERBAL STIMULI. IS ALERT AND ORIENTED X4. IS [place], BUT COMMUNICATES NEEDS EFFECTIVELY. TELEMETRY SHOWING SINUS 60s. BP SOFT, SBP 90s. MAP >65. DENIES CHEST PAIN, PRESSURE. ON ROOM AIR, SATs >90%. RESPIRATIONS EVEN, UNLABORED AT REST. DENIES N/V. TOLERATING PO INTAKE. HYPERACTIVE BOWEL TONES, TENDER WITH PALPATION. RECTAL TUBE IN PLACE. BROWN, LIQUID/PASTY STOOL NOTED. PATIENT IS A ONE PERSON ASSIST TO BSC TO VOID. MINIMAL ASSIST WITH REPOSITIONING IN BED. CALL LIGHT IN REACH. DAUGHTER AT BEDSIDE.
[2023-07-01 21:04] LABS: Calcium, Blood 8.3 mg/dL (8.5-10.1); Creatinine, Blood 3.19 mg/dL (0.40-1.00); Potassium, Blood 2.8 mmol/L (3.5-5.5)
[2023-07-02 02:24] LABS: Albumin, Blood 2.2 g/dL (3.4-5.0); Anion Gap 9 mmol/L (3-11); Blood Urea Nitrogen 45 mg/dL (8-24); Bun/Creatinine Ratio 15.4 (12.0-20.0); CO2, Blood 23 mmol/L (21-32); Chloride, Blood 109 mmol/L (98-108); Creatinine, Blood 2.92 mg/dL (0.40-1.00); Glomerular Filtration Rate 16 (60-); Glucose, Blood 111 mg/dL (70-99); Magnesium, Blood 1.3 mg/dL (1.6-2.4); Phosphorus, Blood 1.4 mg/dL (2.5-4.9); Potassium, Blood 3.6 mmol/L (3.5-5.5); Sodium, Blood 137 mmol/L (136-145)
[2023-07-02 02:34] LABS: BASOPHILS ABSOLUTE AUTO 0.01 K/mm3 (0.00-0.23); BASOPHILS PERCENT AUTO 0 % (0-2); EOSINOPHILS ABSOLUTE AUTO 0.09 K/mm3 (0.00-0.68); EOSINOPHILS PERCENT AUTO 3 % (0-6); Hematocrit 24.2 % (33.0-51.0); Hemoglobin 8.8 g/dL (11.5-16.0); IMMATURE GRAN ABSOLUTE AUTO 0.01 K/mm3 (0.00-0.10); IMMATURE GRAN PERCENT AUTO 0 % (0-1); LYMPHOCYTES ABSOLUTE AUTO 0.92 K/mm3 (0.84-5.20); LYMPHOCYTES PERCENT AUTO 25 % (21-46); MONOCYTES ABSOLUTE AUTO 0.36 K/mm3 (0.16-1.47); MONOCYTES PERCENT AUTO 10 % (4-13); Mean Corpuscular HGB 29.1 pg (26.0-34.0); Mean Corpuscular HGB Conc 36.4 g/dL (31.5-36.5); Mean Corpuscular Volume 80 fL (80-100); Mean Platelet Volume 10.2 fL (9.1-12.4); NEUTROPHILS ABSOLUTE AUTO 2.26 K/mm3 (1.96-9.15); NEUTROPHILS PERCENT AUTO 62 % (41-73); Platelet Count 227 K/mm3 (150-400); RDW Coefficient Variation 13.3 % (11.7-14.2); RDW Standard Deviation 38.5 fL (35.1-46.3); Red Blood Cell Count 3.02 M/mm3 (3.80-5.20); White Blood Cell Count 3.65 K/mm3 (4.00-11.30)
[2023-07-02 04:17] VITALS: BP 91/57
--- NOTE | 2023-07-02 04:43 | NUR ---
SHIFT SUMMARY NO ACUTE EVENTS SINCE ASSUMPTION OF CARE. PATIENT SLEPT THROUGHOUT SHIFT, EASILY AROUSABLE WITH VERBAL STIMULI. DENIES PAIN. REPOSITIONING IN BED THROUGHOUT SHIFT. TELEMETRY SHOWING SINUS 60s-70s. BP REMAINS SOFT, SBP 90s. MAP >65. DENIES CHEST PAIN, PRESSURE. REMAINS ON ROOM AIR, SATs >90%. RESPIRATIONS EVEN, UNLABORED. PATIENT IS A SBA TO BSC TO VOID. X1 LARGE UNMEASURED VOID THIS SHIFT. UNABLE TO COLLECT UA OR ACCURATE OUTPUT MEASUREMENT LIQUID STOOL IN URINE. RECTAL TUBE IN PLACE. DRAINING LOOSE BROWN STOOL THROUGHOUT SHIFT. APPROX 1050ML OUT. DENIES N/V. INCREASED ABDOMINAL PAIN. D5 WITH 40MEQ OF POTASSIUM CHLORIDE INFUSING PER EMAR. POTASSIUM 3.6 THIS MORNING. CALL LIGHT IN REACH. WILL CONTINUE TO MONITOR AND REPORT TO ONCOMING RN.
[2023-07-02] MEDS ORDERED: Magnesium Sulf 2 GM/Water 50ML 50 ML IV ONE (06:50)
[2023-07-02 07:47] VITALS: BP 99/62
[2023-07-02] MEDS ORDERED: Nicotine 14 MG PATCH TOP SCH (09:00)
[2023-07-02] MEDS ORDERED: Potassium Phosphate,Monobasic 500 MG Tablet PO SCH (09:00)
--- NOTE | 2023-07-02 10:40 | NUR ---
Pt is alert, oriented, pleasantly conversant. States that she "slept like a log" when she first awakened at 0730. Was able to eat a little bit of breakfast, but states that she is having some nausea today and isn't feeling very well. She was up to C to void, and rectal tube slipped out. Still having diarrhea. Assisted back to bed and rectal tube was replaced. Draining brown liquid stool. Also worked with occupational therapist and sat up in chair for a short while afterwards. Back to bed, stating that she doesn't feel up to seeing the physical therapist today due to her nausea and overall "not feeling very well." Her is presently at the bedside.
[2023-07-02 12:18] VITALS: BP 111/61
--- NOTE | 2023-07-02 12:22 | NUR ---
Pt walked to the bathroom with standby assistance, using walker and gait belt, to void. Rectal tube verified in place, no leaking noted. Pt states some relief after taking zofran, so she is eating her lunch now. Shemar Marvin, radiation therapy technician, visited her.
[2023-07-02 14:52] LABS: Calcium, Blood 8.4 mg/dL (8.5-10.1); Creatinine, Blood 2.25 mg/dL (0.40-1.00); Potassium, Blood 3.9 mmol/L (3.5-5.5)
[2023-07-02] MEDS ORDERED: Ondansetron 4 MG TAB PO ONE (15:50)
[2023-07-02] MEDS ORDERED: Potassium Phosphate Dibasic 30 MM in Dextrose 5% 500 ML IV STA (15:53)
[2023-07-02 16:18] VITALS: BP 93/53
[2023-07-02] MEDS ORDERED: Potassium Chloride 20 MEQ TabCR PO SCH (17:00)
[2023-07-02] MEDS ORDERED: POTASSIUM CHLORIDE IV SCH (19:20)
[2023-07-02] MEDS ORDERED: D5W LR IV SCH (19:20)
[2023-07-02] MEDS ORDERED: Cholestyramine 4 GM PKT PO SCH (21:00)
[2023-07-02] MEDS ORDERED: Loperamide HCl 2 MG Cap PO SCH (21:00)
[2023-07-02 22:05] VITALS: BP 106/67
[2023-07-02 22:59] LABS: Albumin, Blood 2.2 g/dL (3.4-5.0); Anion Gap 12 mmol/L (3-11); Blood Urea Nitrogen 30 mg/dL (8-24); Bun/Creatinine Ratio 14.7 (12.0-20.0); CO2, Blood 22 mmol/L (21-32); Calcium, Blood 8.4 mg/dL (8.5-10.1); Chloride, Blood 108 mmol/L (98-108); Creatinine, Blood 2.04 mg/dL (0.40-1.00); Glomerular Filtration Rate 24 (60-); Glucose, Blood 85 mg/dL (70-99); Magnesium, Blood 1.4 mg/dL (1.6-2.4); Phosphorus, Blood 2.8 mg/dL (2.5-4.9); Sodium, Blood 137 mmol/L (136-145)
[2023-07-02 23:10] LABS: IRON BIND.CAP.(TIBC) 165 ug/dL (250-450); IRON SATURATION 20 % (15-55); IRON, SERUM 33 ug/dL (27-139); UIBC 132 ug/dL (118-369)
[2023-07-03] VITALS (7 sets, daily range): BP systolic 98–113; BP diastolic 57–69
[2023-07-03 00:10] LABS: FERRITIN 513 ng/mL (15-150)
[2023-07-03 04:22] LABS: BASOPHILS ABSOLUTE AUTO 0.01 K/mm3 (0.00-0.23); BASOPHILS PERCENT AUTO 0 % (0-2); EOSINOPHILS ABSOLUTE AUTO 0.22 K/mm3 (0.00-0.68); EOSINOPHILS PERCENT AUTO 5 % (0-6); Hematocrit 24.2 % (33.0-51.0); Hemoglobin 8.5 g/dL (11.5-16.0); IMMATURE GRAN ABSOLUTE AUTO 0.04 K/mm3 (0.00-0.10); IMMATURE GRAN PERCENT AUTO 1 % (0-1); LYMPHOCYTES PERCENT AUTO 27 % (21-46); MONOCYTES ABSOLUTE AUTO 0.41 K/mm3 (0.16-1.47); MONOCYTES PERCENT AUTO 9 % (4-13); Mean Corpuscular HGB 28.9 pg (26.0-34.0); Mean Corpuscular HGB Conc 35.1 g/dL (31.5-36.5); Mean Corpuscular Volume 82 fL (80-100); Mean Platelet Volume 9.7 fL (9.1-12.4); NEUTROPHILS ABSOLUTE AUTO 2.82 K/mm3 (1.96-9.15); NEUTROPHILS PERCENT AUTO 59 % (41-73); Platelet Count 227 K/mm3 (150-400); RDW Coefficient Variation 13.8 % (11.7-14.2); RDW Standard Deviation 41.4 fL (35.1-46.3); Red Blood Cell Count 2.94 M/mm3 (3.80-5.20)
[2023-07-03 04:46] LABS: Albumin, Blood 2.1 g/dL (3.4-5.0); Anion Gap 11 mmol/L (3-11); Blood Urea Nitrogen 27 mg/dL (8-24); Bun/Creatinine Ratio 14.4 (12.0-20.0); CO2, Blood 20 mmol/L (21-32); Calcium, Blood 8.6 mg/dL (8.5-10.1); Chloride, Blood 111 mmol/L (98-108); Creatinine, Blood 1.88 mg/dL (0.40-1.00); Glomerular Filtration Rate 27 (60-); Glucose, Blood 94 mg/dL (70-99); Magnesium, Blood 1.3 mg/dL (1.6-2.4); Phosphorus, Blood 2.4 mg/dL (2.5-4.9); Potassium, Blood 4.4 mmol/L (3.5-5.5); Sodium, Blood 138 mmol/L (136-145)
--- NOTE | 2023-07-03 06:40 | NUR ---
SHIFT SUMMARY PATIENT ALERT AND ORIENTED X4. HAD NO COMPLAINTS OF PAIN OR SHORTNESS OF BREATH. ON ROOM AIR WITH SPO2 >90%. PATIENT'S RECTAL TUBE CAME OUT WHILE SHE WAS ATTEMPTING TO URINATE, PATIENT CONTINUING TO HAVE WATERY BOWEL MOVEMENTS, RECTAL TUBE REPLACED. MEDICATED PER EMAR FOR NAUSEA. VITAL SIGNS STABLE. NO ACUTE ISSUES NOTED OVERNIGHT. WILL CONTINUE TO MONITOR. CALL LIGHT WITHIN REACH.
[2023-07-03] MEDS ORDERED: Magnesium Sulf 2 GM/Water 50ML 50 ML IV ONE (07:40)
--- NOTE | 2023-07-03 08:06 | NUR ---
Pt reports that last night she had nausea and vomited her medications. This morning states that her nausea is improved. She is sitting up in chair, eating breakfast, states her appetite is not big but she is tolerating it well.
--- NOTE | 2023-07-03 12:10 | NUR ---
Ambulatory to bathroom to void.
[2023-07-03 12:49] LABS: Albumin, Blood 2.1 g/dL (3.4-5.0); Anion Gap 11 mmol/L (3-11); Blood Urea Nitrogen 23 mg/dL (8-24); Bun/Creatinine Ratio 13.8 (12.0-20.0); CO2, Blood 19 mmol/L (21-32); Calcium, Blood 8.9 mg/dL (8.5-10.1); Chloride, Blood 111 mmol/L (98-108); Creatinine, Blood 1.67 mg/dL (0.40-1.00); Glomerular Filtration Rate 31 (60-); Glucose, Blood 200 mg/dL (70-99); Magnesium, Blood 1.8 mg/dL (1.6-2.4); Sodium, Blood 136 mmol/L (136-145)
--- NOTE | 2023-07-03 16:59 | NUR ---
PT A&O X4, ABLE TO MAKE NEEDS KNOWN. RECTAL TUBE IN PLACE, BM HAVE BEEN MORE SOLID THIS SHIFT THAN PREVIOUS. PT HAD NO COMPLAINTS OF PAIN, SOB, OR CP. VSS. PT IS RESTING COMFORTABLY IN BED, CALL LIGHT WITHIN REACH, BREATHING EVEN AND UNLABORED.
[2023-07-03] MEDS ORDERED: Magnesium Sulf 2 GM/Water 50ML 50 ML IV PRN (17:00)
[2023-07-03] MEDS ORDERED: Potassium Phosphate Dibasic 20 MM in Dextrose 5% 500 ML IV STA (17:16)
[2023-07-03] MEDS ORDERED: D5W-LR 1,000 ML IV SCH (17:20)
[2023-07-03 20:21] LABS: Source, Urine Foley catheter
[2023-07-03 20:28] LABS: Appearance, Urine Clear (Clear); Bilirubin, Urine Neg (Neg); Blood, Urine Neg (Neg); Glucose Qualitative, Urine Neg (Neg); Ketones, Urine Neg (Neg); Leukocyte Esterase, Urine 2+ (Neg); Nitrite, Urine Neg (Neg); Protein, Urine Neg (Neg); Urobilinogen, Urine NORM (Normal)
[2023-07-03 20:29] LABS: Color, Urine Pale Yellow (P-Yellow)
[2023-07-03 20:38] LABS: Red Blood Cells, Urine 0-2 /hpf (0-2)
[2023-07-03 20:39] LABS: Bacteria Rare /hpf; Hyaline Casts 0-2 /lpf (0-2); Squamous Epithelial Cells Few /hpf (Few)
[2023-07-03 21:35] LABS: Albumin, Blood 2.2 g/dL (3.4-5.0); Anion Gap 10 mmol/L (3-11); Blood Urea Nitrogen 19 mg/dL (8-24); Bun/Creatinine Ratio 11.6 (12.0-20.0); CO2, Blood 23 mmol/L (21-32); Calcium, Blood 8.7 mg/dL (8.5-10.1); Chloride, Blood 108 mmol/L (98-108); Creatinine, Blood 1.64 mg/dL (0.40-1.00); Glomerular Filtration Rate 32 (60-); Glucose, Blood 84 mg/dL (70-99); Magnesium, Blood 1.5 mg/dL (1.6-2.4); Phosphorus, Blood 3.6 mg/dL (2.5-4.9); Potassium, Blood 5.7 mmol/L (3.5-5.5); Sodium, Blood 135 mmol/L (136-145)
[2023-07-04 03:36] VITALS: BP 114/63
[2023-07-04 04:23] LABS: BASOPHILS ABSOLUTE AUTO 0.01 K/mm3 (0.00-0.23); BASOPHILS PERCENT AUTO 0 % (0-2); EOSINOPHILS ABSOLUTE AUTO 0.45 K/mm3 (0.00-0.68); EOSINOPHILS PERCENT AUTO 7 % (0-6); Hematocrit 25.7 % (33.0-51.0); Hemoglobin 8.6 g/dL (11.5-16.0); IMMATURE GRAN ABSOLUTE AUTO 0.03 K/mm3 (0.00-0.10); IMMATURE GRAN PERCENT AUTO 1 % (0-1); LYMPHOCYTES ABSOLUTE AUTO 1.65 K/mm3 (0.84-5.20); LYMPHOCYTES PERCENT AUTO 27 % (21-46); MONOCYTES ABSOLUTE AUTO 0.52 K/mm3 (0.16-1.47); MONOCYTES PERCENT AUTO 9 % (4-13); Mean Corpuscular HGB 28.6 pg (26.0-34.0); Mean Corpuscular HGB Conc 33.5 g/dL (31.5-36.5); Mean Corpuscular Volume 85 fL (80-100); Mean Platelet Volume 9.4 fL (9.1-12.4); NEUTROPHILS ABSOLUTE AUTO 3.45 K/mm3 (1.96-9.15); NEUTROPHILS PERCENT AUTO 56 % (41-73); Platelet Count 227 K/mm3 (150-400); Red Blood Cell Count 3.01 M/mm3 (3.80-5.20); White Blood Cell Count 6.11 K/mm3 (4.00-11.30)
[2023-07-04 04:44] LABS: Iron Serum 38 ug/dL (50-170); Magnesium, Blood 1.4 mg/dL (1.6-2.4); Percent Saturation 36.2 % (15.0-50.0); Total Iron Binding Capacity 105 ug/dL (250-450)
[2023-07-04 04:45] LABS: Albumin, Blood 2.2 g/dL (3.4-5.0); Anion Gap 9 mmol/L (3-11); Blood Urea Nitrogen 17 mg/dL (8-24); Bun/Creatinine Ratio 10.9 (12.0-20.0); CO2, Blood 22 mmol/L (21-32); Calcium, Blood 8.9 mg/dL (8.5-10.1); Chloride, Blood 109 mmol/L (98-108); Creatinine, Blood 1.56 mg/dL (0.40-1.00); Glomerular Filtration Rate 34 (60-); Glucose, Blood 87 mg/dL (70-99); Phosphorus, Blood 2.8 mg/dL (2.5-4.9); Potassium, Blood 5.1 mmol/L (3.5-5.5); Sodium, Blood 135 mmol/L (136-145)
--- NOTE | 2023-07-04 06:15 | NUR ---
SHIFT SUMMARY PATIENT ALERT AND ORIENTED X4. STAND BY ASSIST TO THE RESTROOM. PATIENT'S RECTAL TUBE CAME OUT AGAIN THIS MORNING, DISCUSSED WITH THE PATIENT ABOUT TRIALING WITH THE RECTAL TUBE OUT SHE WAS HAVING DECREASED AND OUTPUT IS NOT LOOSE IT HAS BEEN. PATIENT STATED THAT SHE IS AFRAID TO HAVE THE RECTAL TUBE OUT AT THIS TIME SHE CANNOT CONTROL WHEN THE STOOL COMES OUT WHEN IT IS LOOSE. RECTAL TUBE REPLACED PER PATIENT REQUEST. PATIENT DENIES ANY PAIN OR SHORTNESS OF BREATH, ON ROOM AIR. VITAL SIGNS STABLE, NO EVENTS ON TELE. WILL CONTINUE TO MONITOR. CALL LIGHT WITHIN REACH.
[2023-07-04] MEDS ORDERED: Magnesium Sulf 2 GM/Water 50ML 50 ML IV ONE (10:15)
--- NOTE | 2023-07-04 11:07 | NUR ---
Pt was given zofran about 1.5 hours ago for nausea. States that she ate "too much for breakfast". Reports worsening nausea at this time. Call to Dr. Arreola , new orders received.
[2023-07-04] MEDS ORDERED: Prochlorperazine Edisylate 10 mg Vial IV PRN (11:15)
[2023-07-04 12:26] VITALS: BP 103/84
[2023-07-04] MEDS ORDERED: D5W-LR 1,000 ML IV SCH (15:00)
[2023-07-04 15:30] VITALS: BP 110/66
--- NOTE | 2023-07-04 16:57 | NUR ---
SHIFT SUMMARY PT A&O X4, ABLE TO MAKE NEEDS KNOWN, COOPERATIVE WITH CARE. VSS, LUNGS CTA, HR IRREGULAR AT 70BPM. SPO2 >95% ON RA. PT DENIES SOB OR CP. PT AMBULATED TO BATHROOM T/O SHIFT WITH SBA. PT HAD SOME NAUSEA THIS AM AFTER BREAKFAST, NOT RELIEVED BY ZOFRAN. PROVIDER ORDERED COMPAZINE WHICH RESOLVED HER NAUSEA. RECTAL TUBE DRAINED VERY MINIMAL BM THI SHIFT, REMOVED TUBE PER PROVIDER. PT HAS TOLERATED THIS WELL. PT IS NOW RESTING COMFORTABLY IN BED, CALL LIGHT WITHIN REACH, BED IN LOWEST POSITION, BREATHING EVEN AND UNLABORED.
[2023-07-04 20:47] VITALS: BP 115/75
[2023-07-04 23:36] VITALS: BP 106/55
[2023-07-05 03:17] VITALS: BP 121/66
--- NOTE | 2023-07-05 05:53 | NUR ---
SHIFT NOTE: PT A/OX4 USES THE CALL LIGHT APPROPRIATELY TO MAKE NEEDS KNOWN. PT CONTINENT AND AMBULATES TO THE BATHROOM WITH 1P ASSIST WITH A WALKER. SHE IS ON RA WITH SPO2 >95%, DENIES SOB. SHE IS ON TELE WITH NO ACUTE CHANGES T/O NIGHT. DENIES CHEST PAIN/PRESSURE. PER RIGHT UPPER ARM POWERGLIDE DRAWS, LABS SENT. LR HAS BEEN RUNNING PER EMAR T/O SHIFT. PT DENIES NEEDS AT THIS TIME. WILL CONTINUE TO MONTIOR AND REPORT TO ONCOMING SKYE
[2023-07-05 06:44] LABS: Magnesium, Blood 1.8 mg/dL (1.6-2.4)
[2023-07-05 06:45] LABS: Anion Gap 9 mmol/L (3-11); Blood Urea Nitrogen 12 mg/dL (8-24); Bun/Creatinine Ratio 8.1 (12.0-20.0); CO2, Blood 21 mmol/L (21-32); Calcium, Blood 8.9 mg/dL (8.5-10.1); Chloride, Blood 110 mmol/L (98-108); Creatinine, Blood 1.48 mg/dL (0.40-1.00); Glomerular Filtration Rate 36 (60-); Glucose, Blood 109 mg/dL (70-99); Phosphorus, Blood 2.4 mg/dL (2.5-4.9); Potassium, Blood 5.4 mmol/L (3.5-5.5); Sodium, Blood 135 mmol/L (136-145)
[2023-07-05 07:32] VITALS: BP 111/69
[2023-07-05 15:34] VITALS: BP 111/72
--- NOTE | 2023-07-05 16:35 | NUR ---
SHIFT SUMMARY PT A&O X4, ABLE TO MAKE NEEDS KNOWN. VSS, LUNGS CLEAR. PT DENIES SOB OR CP. PT DID HAVE AN EPISODE OF EMESIS THIS SHIFT, ADMINISTERED IV COMPAZINE. PT REPORTS FEELING BETTER AFTER MED ADMINISTRATION. SURGICAL CONSULT PLACED FOR ACALCULOUS CHOLECYSTITIS. NO BM THIS SHIFT, LOPERAMIDE D/C'D. PT IS RESTING COMFORTABLY, AT BEDSIDE, CALL LIGHT WITHIN REACH, BED IN LOWEST POSITION, BREATHING EVEN AND UNLABORED.
[2023-07-05 19:27] VITALS: BP 99/72
[2023-07-05 22:33] LABS: ANCA IFA PATTERN None Detected (None Detected); ANCA IFA TITER <1:20 (<1:20)
[2023-07-05 23:36] VITALS: BP 103/73
[2023-07-06 04:02] LABS: Albumin, Blood 2.2 g/dL (3.4-5.0); Anion Gap 8 mmol/L (3-11); Blood Urea Nitrogen 10 mg/dL (8-24); Bun/Creatinine Ratio 6.7 (12.0-20.0); CO2, Blood 24 mmol/L (21-32); Calcium, Blood 8.9 mg/dL (8.5-10.1); Chloride, Blood 108 mmol/L (98-108); Glomerular Filtration Rate 35 (60-); Glucose, Blood 91 mg/dL (70-99); Magnesium, Blood 1.5 mg/dL (1.6-2.4); Phosphorus, Blood 2.2 mg/dL (2.5-4.9); Sodium, Blood 135 mmol/L (136-145)
--- NOTE | 2023-07-06 05:28 | NUR ---
SHIFT NOTE: PT A/OX4 PLEASANT AND COOPERATIVE WITH CARE. PT CONTINENT AND USES FWW AND 1 PERSON ASSIST TO THE BATHROOM. SHE HAS DENIED NAUSEA THIS SHIFT. SHE HAS BEEN NPO SINCE MIDNIGHT FOR SURGICAL CONSULT IN AM. LUNG SANCHEZ ARE CLEAR, SPO2>90% ON RA, NSR IN THE 70S, DENIES CHEST PAIN/PRESSURE. D5LR RUNNING PER EMAR. PT RESTING WITH EVEN UNLABORED RESPIRATIONS, CALL LIGHT IN REACH. WILL CONTINUE TO MONITOR AND REPORT TO ONCOMING RN
[2023-07-06 08:15] VITALS: BP 99/76
--- NOTE | 2023-07-06 10:18 | NUR ---
turned over care to alison castellon
[2023-07-06 11:26] VITALS: BP 102/62
[2023-07-06 16:20] VITALS: BP 99/71
--- NOTE | 2023-07-06 18:37 | NUR ---
DAY SHIFT SUMMARY PT ORIENTED X4, CALM AND COOPERATIVE. DAUGHTER AT BEDSIDE T/O SHIFT. NPO AT START OF SHIFT FOR HIDA SCAN, COMPLETED AROUND 1400. VSS PER PT TREND, ON RA. DENIES PAIN. NAUSEA AT TIMES. SPOKE WITH DR. SHEPPARD VIA CELL AND CONFIRMED PT OK TO EAT AFTER HIDA SCAN. TOLERATED DINNER WELL. ADEQUATE URINE OUTPUT. WILL PASS ON TO NOC RN
[2023-07-06 19:15] VITALS: BP 109/78
--- NOTE | 2023-07-06 23:03 | NUR ---
PT REPORTS FEELING VERY ANXIOUS AND SOB. CONTINUOS BIOX PLACED, PT SPO2>95% ON RA. PT HAS AUDIBLE WHEEZE. MD NOTIFIED, HE ORDERED BD PROTOCOL AND ADVISED TO LEAVE FLUIDS RUNNING AT 125ML/HR PER EMAR. MD DECLINED NEED FOR CHEST XRAY OR LABS AT THIS TIME. WILL CONTINUE TO MONTIOR AND PROVIDE CARE.
[2023-07-06] MEDS ORDERED: Ipratropium/Albuterol SulF 2.5-0.5MG/3 ML Amp INH PRN (23:55)
[2023-07-07 00:48] VITALS: BP 122/70
[2023-07-07 04:04] VITALS: BP 92/58
--- NOTE | 2023-07-07 04:59 | NUR ---
SHIFT NOTE: PT A/OX4 PLEASANT AND COOPERATIVE WITH CARE. SHE USES THE CALL LIGHT APPROPRIATELY TO MAKE NEEDS KNOWN. SHE AMBULATES WITH A STEADY GAIT USING A FWW. HER SPO2 DROPPED TO THE LOW 80S WHILE SLEEPING. 2L NC PLACED TO MAINTAIN SPO2 >90%. PT STATES SOB DECREASED WITH RT TREATMENT. SHE IS ON TELE IN NSR 70S WITH NO ACUTE CHANGES T/O SHIFT. PT DENIES PAIN OR NEEDS AT THIS TIME. WILL CONTINUE TO MONITOR AND REPORT TO ONCOMING RN.
[2023-07-07 08:14] VITALS: BP 97/59
[2023-07-07] MEDS ORDERED: Furosemide 10 MG/ML 4ML Vial IV ONE (10:40)
[2023-07-07] MEDS ORDERED: Magnesium Sulf 2 GM/Water 50ML 50 ML IV ONE (10:40)
--- NOTE | 2023-07-07 10:41 | NUR ---
PT HAS HAD INCREASED DYSPNEA WITH EXERTION AND WHILE AT REST. DIFFICULTY GETTING OXIMETRY TO READ BUT REGULARILY IN THE HIGH 80'S. CRACKLES HEARD IN BASES. SPOKE WITH RT. NOTIFIED DR. STACK OF NEW CHANGES AND OF POSITIVE FLUID BALANCE. ORDERS RECIEVED FOR 40MG LASIX, CHEST XRAY AND BNP. ALSO ORDERS TO STOP IVF AT THIS TIME.PT RESTING IN BED SATS 91% AT THIS TIME ON 4L NASAL CANULA.
[2023-07-07] MEDS ORDERED: NS 250 ML IV PRN (10:45)
[2023-07-07 13:28] VITALS: BP 120/77
--- NOTE | 2023-07-07 17:37 | NUR ---
SHIFT SUMMARY PT AA0X4. SHE REPORTS BREATHING HAS IMPROVED SINCE LASIX ADMINISTERED. CONTINUING TO DIURESE PER ORDERS. DOWN TO 2L NASAL CANULA AT THIS TIME. SATS 95%. PT AMBULATING TO RESTROOM WITH LESS DIFFICULTY THIS AFTERNOON, CONTINUES TO REPORT SOME NAUSEA WITH PO INTAKE. TOLERABLE PER EMAR. PT REPORTS SOME FLATUS, NO BM AT THIS TIME. TOLERATING MINIMAL DIET, DENIES STRONG APPETITE.
[2023-07-07] MEDS ORDERED: Furosemide 10 MG/ML 4ML Vial IV SCH (18:00)
[2023-07-07 19:40] VITALS: BP 140/70
--- NOTE | 2023-07-07 21:03 | NUR ---
PT COMPLAINED OF FEELING SOB, O2 INCREASED TO 3L NC TO MAINTAIN SPO2>95%, PT POSITIONED HIGHER IN BED WITH HOB ELEVATED. PT RESTING COMFORTABLY NOW WITH EVEN UNLABORED RESPIRATIONS.
[2023-07-07 23:26] VITALS: BP 107/65
[2023-07-08 03:51] VITALS: BP 104/70
[2023-07-08 04:15] LABS: BASOPHILS ABSOLUTE AUTO 0.02 K/mm3 (0.00-0.23); BASOPHILS PERCENT AUTO 0 % (0-2); EOSINOPHILS ABSOLUTE AUTO 0.16 K/mm3 (0.00-0.68); EOSINOPHILS PERCENT AUTO 2 % (0-6); Hemoglobin 7.9 g/dL (11.5-16.0); IMMATURE GRAN ABSOLUTE AUTO 0.04 K/mm3 (0.00-0.10); IMMATURE GRAN PERCENT AUTO 1 % (0-1); LYMPHOCYTES ABSOLUTE AUTO 1.38 K/mm3 (0.84-5.20); LYMPHOCYTES PERCENT AUTO 17 % (21-46); MONOCYTES PERCENT AUTO 8 % (4-13); Mean Corpuscular HGB 28.3 pg (26.0-34.0); Mean Corpuscular HGB Conc 32.9 g/dL (31.5-36.5); Mean Corpuscular Volume 86 fL (80-100); Mean Platelet Volume 9.7 fL (9.1-12.4); NEUTROPHILS ABSOLUTE AUTO 5.84 K/mm3 (1.96-9.15); NEUTROPHILS PERCENT AUTO 73 % (41-73); Platelet Count 255 K/mm3 (150-400); RDW Coefficient Variation 13.7 % (11.7-14.2); Red Blood Cell Count 2.79 M/mm3 (3.80-5.20); White Blood Cell Count 8.04 K/mm3 (4.00-11.30)
[2023-07-08 04:35] LABS: Albumin, Blood 2.3 g/dL (3.4-5.0); Albumin/Globulin Ratio 0.8 (0.8-1.8); Bilirubin, Total 0.3 mg/dL (0.1-1.0); Bun/Creatinine Ratio 6.4 (12.0-20.0); Calcium, Blood 8.6 mg/dL (8.5-10.1); Creatinine, Blood 1.73 mg/dL (0.40-1.00); Globulin, Blood 2.8 g/dL (2.2-4.0); Potassium, Blood 4.6 mmol/L (3.5-5.5); Total Protein, Blood 5.1 g/dL (6.4-8.2)
--- NOTE | 2023-07-08 04:48 | NUR ---
SHIFT NOTE: PT A/OX4 PLEASANT AND COOPERATIVE WITH CARE. PT STATES SHE DOES NOT LIKE THE PURE WICK AND IS FEARFUL OF LOSING MOBILITY. PT WANTS TO GET OUT OF BED FOR BATHROOM NEEDS. PT EDUCATED ON THE BENEFITS OF MOBILITY. PT SPO2>90% ON 2-3L T/O SHIFT, DENIES SOB WHILE AMBULATING TO THE BATHROOM. SHE IS ON TELE IN NSR WITH NO ACUTE CHANGES OVERNIGHT. SHE DENIES CHEST PAIN/PRESSURE. VSS, PT RESTING WITH CALL LIGHT IN REACH, WILL CONTINUE TO MONITOR AND REPORT TO ONCOMING RN
[2023-07-08 08:26] VITALS: BP 107/81
--- NOTE | 2023-07-08 10:42 | NUR ---
PT IS SBA WITH FWW TO BATHROOM, SHE AMBULATED WELL WITH PHSICAL THERAPY THIS MORNING. SHE IS A/O X4, ANSWERING QUESTIONS APPROPRIATELY IN FULL SENTENCES. SHE DENIES CP OR SOB. RESPIRATIONS ARE EVEN AND NON-LABORED. SHE HAS BEEN DECREASED TO 1L O2 VIA NASAL CANNULA, SHE DID WELL ON RA BUT BECAME ANXIOUS WITH O2 OFF, IT WAS RETURNED FOR COMFORT. WE CONTINUE DIURESING THIS AM. SHE CALL APPROPRIATELY NEEDED. NADN. LEVINE.
[2023-07-08 11:41] VITALS: BP 117/76
[2023-07-08] MEDS ORDERED: Acetaminophen 325 MG TABLET PO PRN (13:30)
[2023-07-08 15:44] VITALS: BP 109/73
[2023-07-08] MEDS ORDERED: Thiamine HCl 100 MG Tab PO SCH (17:55)
[2023-07-08 18:34] LABS: Magnesium, Blood 2.1 mg/dL (1.6-2.4); Phosphorus, Blood 2.7 mg/dL (2.5-4.9)
--- NOTE | 2023-07-08 18:54 | NUR ---
End of shift note. Pt reports having a good day. Pt states that she is overall feeling better and is looking forward to discharging home. Pt has been OOB multiple times, working with PT and walking into the bathroom with minimal assistance. Good urine output post diuretics. No BM since rectal tube was removed on 07/03. Pt reports low PO intake. Pt report minimal flatus. Abd soft and non tender. No orders for bowel care, may need some soon. Pt is able to make needs known, call light is within reach.
[2023-07-08 20:00] VITALS: BP 115/77
[2023-07-08 23:15] VITALS: BP 116/77
[2023-07-09 03:45] VITALS: BP 136/82
[2023-07-09 05:48] LABS: BASOPHILS ABSOLUTE AUTO 0.02 K/mm3 (0.00-0.23); BASOPHILS PERCENT AUTO 0 % (0-2); EOSINOPHILS ABSOLUTE AUTO 0.32 K/mm3 (0.00-0.68); EOSINOPHILS PERCENT AUTO 3 % (0-6); Hematocrit 26.8 % (33.0-51.0); Hemoglobin 8.8 g/dL (11.5-16.0); IMMATURE GRAN ABSOLUTE AUTO 0.04 K/mm3 (0.00-0.10); IMMATURE GRAN PERCENT AUTO 0 % (0-1); LYMPHOCYTES PERCENT AUTO 15 % (21-46); MONOCYTES ABSOLUTE AUTO 0.56 K/mm3 (0.16-1.47); MONOCYTES PERCENT AUTO 6 % (4-13); Mean Corpuscular HGB 28.5 pg (26.0-34.0); Mean Corpuscular HGB Conc 32.8 g/dL (31.5-36.5); Mean Corpuscular Volume 87 fL (80-100); Mean Platelet Volume 9.7 fL (9.1-12.4); NEUTROPHILS ABSOLUTE AUTO 7.04 K/mm3 (1.96-9.15); NEUTROPHILS PERCENT AUTO 75 % (41-73); Platelet Count 275 K/mm3 (150-400); RDW Coefficient Variation 13.6 % (11.7-14.2); RDW Standard Deviation 42.6 fL (35.1-46.3); Red Blood Cell Count 3.09 M/mm3 (3.80-5.20); White Blood Cell Count 9.38 K/mm3 (4.00-11.30)
--- NOTE | 2023-07-09 06:05 | NUR ---
1915 Assumed care of pt, bedside report completed. Shift plan of care reviewed with pt and all questions answered. Pt reports did not sleep well this shift, though is not sure why. Medicated for nausea x1 this shift with good results. Pt continues to wear O2 1lpm via NC despite able to maintain O2 Sat on RA. Pt report she likes to wear it as it "helps me when I start to have a panic attack." Pt seems to equate a new COPD diagnosis with needing continuous O2 despite education. No pain report this shift. Please see full assessment for additional details. No further complaints or concerns at this time, will continue to monitor.
[2023-07-09 06:09] LABS: Albumin, Blood 2.6 g/dL (3.4-5.0); Albumin/Globulin Ratio 0.9 (0.8-1.8); Bilirubin, Total 0.3 mg/dL (0.1-1.0); Bun/Creatinine Ratio 8.4 (12.0-20.0); Calcium, Blood 8.9 mg/dL (8.5-10.1); Creatinine, Blood 1.78 mg/dL (0.40-1.00); Phosphorus, Blood 2.4 mg/dL (2.5-4.9); Potassium, Blood 4.4 mmol/L (3.5-5.5); Total Protein, Blood 5.6 g/dL (6.4-8.2)
[2023-07-09 07:27] VITALS: BP 123/73
[2023-07-09 11:54] VITALS: BP 99/80
[2023-07-09] MEDS ORDERED: ORTIKOS9 M1 PO (14:33)
[2023-07-09] MEDS ORDERED: B-1100 M1 PO (14:34)
[2023-07-09 15:32] VITALS: BP 123/64
--- NOTE | 2023-07-09 16:33 | NUR ---
PT DISCHARGED ABOUT 1535. VS STABLE, POWERGLIDE PULLED BY DAVID CHEUNG, MEDICATIONS FAXED TO [facility], AND WE TEXTED/CALLED DR. VAN ABOUT HER KENDALLFRAN ORDER THAT WAS NOT ON THE D/C MEDICATIONS. SHE WOULD LIKE THE ZOFRAN FAXED TO [facility] IN [place]. I WENT OVER DISCHARGE EDUCATION WITH THE PT AND ANSWERED ALL OF HER QUESTIONS. ALL BELONGINGS SENT HOME WITH THE PT/ NO FURTHER NOTES.
[2023-07-10 00:21] LABS: IMMUNOGLOBULIN A 44 mg/dL (68-408); IMMUNOGLOBULIN G 554 mg/dL (768-1632); IMMUNOGLOBULIN M 39 mg/dL (35-263)
[2023-07-10 00:40] LABS: ALBUMIN 2.21 g/dL (3.75-5.01); ALPHA 1 GLOBULIN 0.37 g/dL (0.19-0.46); ALPHA 2 GLOBULIN 0.79 g/dL (0.48-1.05); BETA GLOBULIN 0.41 g/dL (0.48-1.10); GAMMA 0.52 g/dL (0.62-1.51); IMMUNOFIXATION REFLEX IFE Done; TOTAL PROTEIN,SERUM 4.3 g/dL (6.3-8.2)
== END 2023-07-09 15:43 | disposition home or self-care (01) | DRG 682 ==
LOC: ER 11:57 → ICUE 15:18 → MEDS 15:18 → PCU 15:18 → ICUE 18:14 → PCU 07-01 18:35
PROVIDERS: Emergency Medicine; Hospitalist; Internal Medicine; Student in an Organized Health Care Education/Training Program; ADMIT Family Medicine
DX: N17.9 Acute kidney failure, unspecified (principal); E43 Unspecified severe protein-calorie malnutrition; E87.1 Hypo-osmolality and hyponatremia; E87.21 Acute metabolic acidosis; F17.213 Nicotine dependence, cigarettes, with withdrawal; J90 Pleural effusion, not elsewhere classified; Z68.1 Body mass index [BMI] 19.9 or less, adult; Z66 Do not resuscitate; K52.831 Collagenous colitis; F32.A Depression, unspecified; E87.6 Hypokalemia; E83.42 Hypomagnesemia; E83.39 Other disorders of phosphorus metabolism; I95.9 Hypotension, unspecified; N39.41 Urge incontinence; K82.8 Other specified diseases of gallbladder; E87.8 Other disorders of electrolyte and fluid balance, not elsewhere classified; D50.9 Iron deficiency anemia, unspecified; E86.0 Dehydration; K81.1 Chronic cholecystitis; E87.70 Fluid overload, unspecified; G43.909 Migraine, unspecified, not intractable, without status migrainosus; I12.9 Hypertensive chronic kidney disease with stage 1 through stage 4 chronic kidney disease, or unspecified chronic kidney disease; N18.31 Chronic kidney disease, stage 3a; Z88.2 Allergy status to sulfonamides; Z91.048 Other nonmedicinal substance allergy status; Z88.8 Allergy status to other drugs, medicaments and biological substances; Z79.899 Other long term (current) drug therapy; Z90.89 Acquired absence of other organs; Z90.710 Acquired absence of both cervix and uterus
CPT/HCPCS: 36415; 71046; 74176; 76705; 78226; 80048; 80053; 80069; 81001; 82010; 82272; 82570; 82607; 82728; 82746; 82784; 82803; 83521; 83540; 83550; 83605; 83735; 83880; 84100; 84155; 84165; 84300; 85025; 86037; 86334; 86850; 86900; 86901; 87205; 87507; 93005; 93010; 94640; 94664; 94762; 96361; 96365; 96366; 97110; 97116; 97162; 97165; 97530; 97535; 99285-25; A9270; A9537; J0780; J1644; J1940; J3411; J3475; J3480; J7030; J7040; J7050; J7060; J7070; J7121

== ENCOUNTER → 2024-08-10 | Outpatient (CLI) | payer MEDICARE ==
[~2024-08-10] MED LIST changes: +B-1100 M1 PO; +MESALAMINE 1.2 GM; +MULVITA PO; +ORTIKOS9 M1 PO; +PANTOPRAZOLE SO40 M2 PO; +VENL25 PO
[2024-08-10 15:17] LABS: Source, Urine Clean Catch
[2024-08-10 19:35] LABS: Appearance, Urine Cloudy (Clear); Bilirubin, Urine Neg (Neg); Blood, Urine 4+ (Neg); Color, Urine Yellow (P-Yellow); Glucose Qualitative, Urine Neg (Neg); Ketones, Urine Neg (Neg); Leukocyte Esterase, Urine 3+ (Neg); Nitrite, Urine Neg (Neg); Protein, Urine 3+ (Neg); Urobilinogen, Urine NORM (Normal)
[2024-08-10 19:53] LABS: Squamous Epithelial Cells Few /hpf (Few); White Blood Cells, Urine TNTC /hpf (0-5)
[2024-08-10 19:54] LABS: Bacteria Mod /hpf
== END ==
LOC: LAB 15:05 → LAB SHORT 15:05
PROVIDERS: Nurse Practitioner Family
DX: R30.0 Dysuria (principal)
CPT/HCPCS: 81001; 87086